=== PATIENT | female | born 1990 | race Caucasian/White ===

== ENCOUNTER 2019-03-31 16:26 | Emergency (ER) | payer MEDICAID ==
[2019-03-31 16:35] VITALS: BP 107/74
[2019-03-31] MEDS ORDERED: Sodium Chloride 0.9% 1,000 ML IV ONE (17:22)
[2019-03-31] MEDS ORDERED: HYDROmorphone 0.5 MG/0.5 ML Syringe IVPUSH ONE (17:23)
[2019-03-31] MEDS ORDERED: Sodium Chloride 0.9% 10 ML Syringe FLUSH PRN (17:24)
[2019-03-31] MEDS ORDERED: Ondansetron 4 MG/2 ML SDV IVPUSH ONE (17:24)
--- NOTE | 2019-03-31 18:39 | EDM.PDOC ---
ED HPI GENERAL MEDICAL PROBLEM - General Chief Complaint: Abdominal Pain Stated Complaint: ABD PAIN Time Seen by Provider: 03/31/19 17:05 Source of Information: Reports: Patient History Limitations: Reports: No Limitations - History of Present Illness INITIAL COMMENTS - FREE TEXT/NARRATIVE: 28-year-old female presents for evaluation and treatment of abdominal pain. Patient reports that the abdominal pain started last night. She describes as a sharp stabbing sensation worse with movement and breathing. It is in her epigastric area with radiation into her back. She states that she tried Pepto- Bismol but continues to have pain. She denies any chest pain, back pain, shortness of breath, fevers, chills, nausea, vomiting, lightheadedness, dizziness or any urinary symptoms including no dysuria hematuria. Reports her last bowel movement was today. She is not appreciated any blood urinary stool. Reports last menstrual period ended about 3 days ago. Patient denies a previous surgeries to her abdomen. Upper Abdomen Pain Score (Numeric/FACES): 10 - Related Data Allergies Allergy/AdvReac Type Severity Reaction Status Date / Time caffeine AdvReac Vomiting Verified 03/31/19 16:34 tramadol AdvReac Vomiting Verified 03/31/19 16:34 Home Meds: Home Meds Budesonide/Formoterol [Symbicort 160-4.5 MCG] 1 inh INH DAILY 03/31/19 [History] Cephalexin [Keflex] 500 mg PO BID #10 capsule 03/31/19 [Rx] FLUoxetine [PROzac] 20 mg PO DAILY 03/31/19 [History] Naproxen 500 mg PO BID PRN #20 tablet 03/31/19 [Rx] Prazosin [Minpress] 5 mg PO DAILY 03/31/19 [History] lamoTRIgine [Lamotrigine] 200 mg PO BID 03/31/19 [History] Past Medical History Neurological History: Reports: Seizure Psychiatric History: Reports: Bipolar Social & Family History - Tobacco Use Smoking Status *Q: Current Every Day Smoker Years of Tobacco use: 10 Packs/Tins Daily: 0.5 - Caffeine Use Caffeine Use: Reports: None - Recreational Drug Use Recreational Drug Use: No ED ROS GENERAL - Review of Systems Review Of Systems: See Below Constitutional: Denies: Fever, Chills Respiratory: Denies: Shortness of Breath Cardiovascular: Denies: Chest Pain, Lightheadedness GI/Abdominal: Reports: Abdominal Pain (epigastric). Denies: Diarrhea, Nausea, Vomiting : Reports: No Symptoms. Denies: Dysuria, Hematuria Musculoskeletal: Denies: Back Pain Neurological: Denies: Dizziness ED EXAM, GI/ABD - Physical Exam Exam: See Below Exam Limited By: No Limitations General Appearance: Alert, WD/WN, No Apparent Distress Throat/Mouth: Normal Inspection, Normal Voice, No Airway Compromise Respiratory/Chest: No Respiratory Distress, Lungs Clear, Normal Breath Sounds Cardiovascular: Normal Peripheral Pulses, Regular Rate, Rhythm, No Murmur GI/Abdominal Exam: Normal Bowel Sounds, Soft, No Distention, Tender (epigastric) . No: Guarding, Rigid, Rebound Neurological: Alert, Oriented, Normal Cognition Psychiatric: Normal Affect, Normal Mood Skin Exam: Warm, Dry, Normal Color Course - Vital Signs Last Recorded V/S: Last Vital Signs Temp 98.1 F 03/31/19 16:32 Pulse 62 03/31/19 16:32 Resp 18 03/31/19 16:32 BP 107/74 03/31/19 16:32 Pulse Ox 100 03/31/19 16:32 - Orders/Labs/Meds Labs: Laboratory Tests 03/31/19 03/31/19 03/31/19 Range/Units 17:35 17:41 17:41 WBC 4.44 (3.98-10.04) K/mm3 RBC 3.80 L (3.98-5.22) M/mm3 Hgb 11.5 (11.2-15.7) gm/L Hct 34.6 (34.1-44.9) % MCV 91.1 (79.4-94.8) fl MCH 30.3 (25.6-32.2) pg MCHC 33.2 (32.2-35.5) g/dl RDW Std Deviation 44.9 (36.4-46.3) fL Plt Count 257 (182-369) K/mm3 MPV 9.1 L (9.4-12.3) fl Neutrophils % (Manual) 65 H (40-60) % Band Neutrophils % 0 (0-10) % Lymphocytes % (Manual) 29 (20-40) % Atypical Lymphs % 0 % Monocytes % (Manual) 3 (2-10) % Eosinophils % (Manual) 3 (0.7-5.8) % Basophils % (Manual) 0 L (0.1-1.2) Platelet Estimate Adequate RBC Morph Comment Normal Sodium (136-145) mEq/L Potassium (3.5-5.1) mEq/L Chloride (98-107) mEq/L Carbon Dioxide (21-32) mEq/L Anion Gap (5-15) BUN (7-18) mg/dL Creatinine (0.55-1.02) mg/dL Est Cr Clr Drug Dosing mL/min Estimated GFR (MDRD) (>60) mL/min BUN/Creatinine Ratio (14-18) Glucose (74-106) mg/dL Calcium (8.5-10.1) mg/dL Total Bilirubin (0.2-1.0) mg/dL AST (15-37) U/L ALT (14-59) U/L Alkaline Phosphatase (46-116) U/L C-Reactive Protein (<1.0) mg/dL Total Protein (6.4-8.2) g/dl Albumin (3.4-5.0) g/dl Globulin gm/dL Albumin/Globulin Ratio (1-2) Lipase (73-393) U/L Urine Color Yellow (Yellow) Urine Appearance Clear (Clear) Urine pH 8.0 (5.0-8.0) Ur Specific [place] 1.015 (1.005-1.030) Urine Protein Negative (Negative) Urine Glucose (UA) Negative (Negative) Urine Ketones Negative (Negative) Urine Occult Blood Negative (Negative) Urine Nitrite Positive H (Negative) Urine Bilirubin Negative (Negative) Urine Urobilinogen 0.2 (0.2-1.0) Ur Leukocyte Esterase Negative (Negative) Urine RBC 0-5 (0-5) /hpf Urine WBC 0-5 (0-5) /hpf Ur Epithelial Cells 0-5 (0-5) /hpf Urine Bacteria Many H (FEW) /hpf Urine Mucus Few (FEW) /hpf Urine HCG, Qual Negative (NEGATIVE) 03/31/19 Range/Units 17:41 WBC (3.98-10.04) K/mm3 RBC (3.98-5.22) M/mm3 Hgb (11.2-15.7) gm/L Hct (34.1-44.9) % MCV (79.4-94.8) fl MCH (25.6-32.2) pg MCHC (32.2-35.5) g/dl RDW Std Deviation (36.4-46.3) fL Plt Count (182-369) K/mm3 MPV (9.4-12.3) fl Neutrophils % (Manual) (40-60) % Band Neutrophils % (0-10) % Lymphocytes % (Manual) (20-40) % Atypical Lymphs % % Monocytes % (Manual) (2-10) % Eosinophils % (Manual) (0.7-5.8) % Basophils % (Manual) (0.1-1.2) Platelet Estimate RBC Morph Comment Sodium 142 (136-145) mEq/L Potassium 3.0 L (3.5-5.1) mEq/L Chloride 106 (98-107) mEq/L Carbon Dioxide 25 (21-32) mEq/L Anion Gap 14.0 (5-15) BUN 11 (7-18) mg/dL Creatinine 0.9 (0.55-1.02) mg/dL Est Cr Clr Drug Dosing 69.97 mL/min Estimated GFR (MDRD) > 60 (>60) mL/min BUN/Creatinine Ratio 12.2 L (14-18) Glucose 81 (74-106) mg/dL Calcium 8.3 L (8.5-10.1) mg/dL Total Bilirubin 0.3 (0.2-1.0) mg/dL AST 16 (15-37) U/L ALT 20 (14-59) U/L Alkaline Phosphatase 63 (46-116) U/L C-Reactive Protein < 0.2 (<1.0) mg/dL Total Protein 6.8 (6.4-8.2) g/dl Albumin 3.7 (3.4-5.0) g/dl Globulin 3.1 gm/dL Albumin/Globulin Ratio 1.2 (1-2) Lipase 74 (73-393) U/L Urine Color (Yellow) Urine Appearance (Clear) Urine pH (5.0-8.0) Ur Specific [place] (1.005-1.030) Urine Protein (Negative) Urine Glucose (UA) (Negative) Urine Ketones (Negative) Urine Occult Blood (Negative) Urine Nitrite (Negative) Urine Bilirubin (Negative) Urine Urobilinogen (0.2-1.0) Ur Leukocyte Esterase (Negative) Urine RBC (0-5) /hpf Urine WBC (0-5) /hpf Ur Epithelial Cells (0-5) /hpf Urine Bacteria (FEW) /hpf Urine Mucus (FEW) /hpf Urine HCG, Qual (NEGATIVE) Meds: Medications Discontinued Medications Generic Name Dose Route Start Last Admin Trade Name Freq PRN Reason Stop Dose Admin Hydromorphone HCl 0.5 mg 03/31/19 17:23 03/31/19 17:49 Dilaudid IVPUSH 03/31/19 17:24 0.5 mg ONETIME ONE Administration Sodium Chloride 1,000 mls @ 999 mls/hr 03/31/19 17:22 03/31/19 17:50 Normal Saline IV 03/31/19 18:22 999 mls/hr ONETIME ONE Administration Ondansetron HCl 4 mg 03/31/19 17:24 03/31/19 17:48 Zofran IVPUSH 03/31/19 17:25 4 mg ONETIME ONE Administration Sodium Chloride 10 ml 03/31/19 17:24 03/31/19 17:49 Saline Flush FLUSH 10 ml ASDIRECTED PRN Administration Keep Vein Open - Radiology Interpretation Free Text/Narrative:: abdominal xray shows increased stool to the left colon and increased gas to the right. No acute process identified. - Re-Assessments/Exams Free Text/Narrative Re-Assessment/Exam: 03/31/19 19:39 xray and labs reviewed with the patient. No indication for CT at this time. Recommendations given for constipation. Will start on antibiotic for UTI. Patient requested something for pain. Will prescribe naproxen for pain relief. Discharge instructions as documented. Departure - Departure Time of Disposition: 19:40 Disposition: Home, Self-Care 01 Condition: Good Clinical Impression: Constipation, UTI (urinary tract infection) - Discharge Information *PRESCRIPTION DRUG MONITORING PROGRAM REVIEWED*: No *COPY OF PRESCRIPTION DRUG MONITORING REPORT IN PATIENT DILIP: No Prescriptions: Cephalexin [Keflex] 500 mg PO BID #10 capsule Naproxen 500 mg PO BID PRN #20 tablet PRN Reason: Pain Referrals: PCP,Not In Area [Primary Care Provider] - Charlotte Pugh PA-C [Physician Wire Harness Assembler] - Forms: ED Department Discharge Additional Instructions: you were given medication in the ER that can affect your ability to drive and operate machinery. Do not drive or operate machinery within 10 hours of taking prescription narcotic pain medication. Recommend magnesium citrate. This is available OTC. Drink half of the 300ml bottle, if you do not have a large bowel movement within 10 hours, drink the second half of the bottle. take the Keflex as prescribed. 1 tab twice a day for 5 days. Make sure you are drinking plenty of fluids. Follow-up with family medicine next week for recheck of your symptoms. Take the naproxen 1 tab twice daily as needed for pain. Please return to the ER should your symptoms change or worsen.
--- NOTE | 2019-04-01 06:47 | CR ---
Abdomen: Supine and upright views of the abdomen were obtained. Comparison: No previous study. Scoliosis is noted within the spine. Bowel gas pattern is normal. No abnormal calcifications or soft tissue abnormality is seen. No free air is seen. Impression: 1. Incidental findings. Nothing acute is seen. Diagnostic code #2
== END 2019-03-31 19:38 | disposition home or self-care (01) ==
LOC: JD.ED 16:26
DX: K59.00 Constipation, unspecified (principal); N39.0 Urinary tract infection, site not specified; F17.210 Nicotine dependence, cigarettes, uncomplicated; Z79.899 Other long term (current) drug therapy; Z88.6 Allergy status to analgesic agent; Z91.018 Allergy to other foods
CPT/HCPCS: 36415; 74019; 80053; 81001; 81025; 83690; 85007; 85027; 86140; 87086; 87088; 87186; 96361; 96374; 96375; 99284; J1170; J2405; J7040; 99283

== ENCOUNTER 2019-04-16 08:49 | Emergency (ER) | payer MEDICAID ==
[2019-04-16 08:57] VITALS: BP 121/84
--- NOTE | 2019-04-16 09:31 | EDM.PDOC ---
ED HPI GENERAL MEDICAL PROBLEM - General Chief Complaint: ENT Problem Stated Complaint: RT SIDE OF FACE SWOLLEN Time Seen by Provider: 04/16/19 09:27 Source of Information: Reports: Patient History Limitations: Reports: No Limitations - History of Present Illness INITIAL COMMENTS - FREE TEXT/NARRATIVE: 28-year-old female presents to the ED with severe pain in the right side of her face. No known trauma or injuries. She does not feel like she has a dental infection. She states she can barely open her mouth on the whole right side of her face hurts particularly up to her right ear. Pain came on apparently over the last 24-36 hours. No associated fever or chills. She states she's never had any problems like this before. No recent dental procedures for prolonged mouth opening. Onset: Gradual Onset Date: 04/15/19 (Right-sided face was moderately sore yesterday but severe this morning.) Duration: Day(s):, Getting Worse, Waxing/Waning Location: Reports: Face Quality: Reports: Ache (Right side of face anterior to her right ear down to the angle of her mandible.), Throbbing Severity: Severe Improves with: Reports: Rest (Not talking.) Worsens with: Reports: Other (Trying to eat or talk.) Context: Denies: Activity, Exercise, Lifting, Sick Contact, Trauma, Other Associated Symptoms: Denies: No Other Symptoms, Confusion, Chest Pain, Cough, cough w sputum, Diaphoresis, Fever/Chills, Headaches, Loss of Appetite, Malaise , Nausea/Vomiting, Rash, Seizure, Shortness of Breath, Syncope, Weakness Treatments PARTS FACILITATOR: Reports: Other (see below) (None.) Right Jaw Pain Score (Numeric/FACES): 9 - Related Data Allergies Allergy/AdvReac Type Severity Reaction Status Date / Time caffeine AdvReac Vomiting Verified 04/16/19 08:58 tramadol AdvReac Vomiting Verified 03/31/19 16:34 Home Meds: Home Meds Budesonide/Formoterol [Symbicort 160-4.5 MCG] 1 inh INH DAILY 03/31/19 [History] Prazosin [Minpress] 5 mg PO DAILY 03/31/19 [History] lamoTRIgine [Lamotrigine] 200 mg PO BID 03/31/19 [History] Diclofenac Sodium [Voltaren] 50 mg PO TID #24 tab.ec 04/16/19 [Rx] oxyCODONE HCl/Acetaminophen [Percocet 5-325 mg Tablet] 1 each PO Q6H PRN #10 tablet 04/16/19 [Rx] predniSONE [Deltasone] 20 mg PO BID #10 tablet 04/16/19 [Rx] Past Medical History 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 Denies: Fever, Chills, Weight Loss HEENT: Reports: Ear Pain (Right side). Denies: Dental Pain, Eye Discharge, Eye Pain, Glasses, Hearing Loss, Nosebleed, Nose Pain, Rhinitis, Sinus Problem, Throat Pain, Throat Swelling, Vertigo, Vision Change Respiratory: Reports: No Symptoms Cardiovascular: Reports: No Symptoms Endocrine: Reports: No Symptoms GI/Abdominal: Reports: No Symptoms : Reports: No Symptoms Musculoskeletal: Reports: Other Skin: Reports: No Symptoms (Right hemifacial pain especially anterior to the right ear) Neurological: Reports: No Symptoms Psychiatric: Reports: No Symptoms Hematologic/Lymphatic: Reports: No Symptoms ED EXAM, ENT - Physical Exam Exam: See Below Exam Limited By: Physical Impairment (Patient has severe trismus.) General Appearance: Alert, WD/WN, Moderate Distress, Other (She is only able to open her mouth approximately 3 cm in between her incisor teeth.) Ears: Normal TMs, Other (Severe pain right temporomandibular joint. There is mild master muscle spasm on the right side as well. And seemed to be apparent on the left side but milder. Suspect bruxism at night time.) Mouth/Throat: Normal Inspection, Normal Gums, Normal Lips, Normal Oropharynx, Normal Teeth, Other Head: Atraumatic (No signs of any dental infection oropharyngeal inflammation.) , Normocephalic Neck: Normal Inspection, Supple, Non-Tender. No: Lymphadenopathy (L), Lymphadenopathy (R) Respiratory/Chest: No Respiratory Distress, Lungs Clear, Normal Breath Sounds, No Accessory Muscle Use Cardiovascular: Normal Peripheral Pulses, Regular Rate, Rhythm, No Edema, No Gallop, No Murmur, No Rub Course - Vital Signs Last Recorded V/S: Last Vital Signs Temp 37.1 C 04/16/19 08:56 Pulse 89 04/16/19 08:56 Resp 15 04/16/19 08:56 BP 121/84 04/16/19 08:56 Pulse Ox 100 04/16/19 08:56 - Radiology Interpretation Free Text/Narrative:: 28-year-old female presents to the ED with diffuse right hemifacial pain. It's been getting worse over the last 2 days. Severe overnight. Emanation reveals pain is coming from the right temporomandibular joint with masseter muscle spasm. There appears to be milder pain on the left side of her face as well in the same distribution. Suspect she is experiencing bruxism at night time with clenching. Advised soft diet. Placed on prednisone 20 mg twice a day for 5 days and Voltaren 50 mg twice a day for 10 days to relieve pain and inflammation.Also placed on 10 tablets of Percocet 5/325 mg one tablet every 6 hours as needed for pain relief until the anti-inflammatories become effectual over the next 2 days. If symptoms persist she is going to need to see a dentist to have a bite block formed or I believe they do self bite blocks through the [facility] [employer] stores. Departure - Departure Time of Disposition: 09:27 Disposition: Home, Self-Care 01 Condition: Fair Clinical Impression: Temporomandibular joint arthralgia Qualifiers: Laterality: right Qualified Code(s): M26.621 - Arthralgia of right temporomandibular joint - Discharge Information *PRESCRIPTION DRUG MONITORING PROGRAM REVIEWED*: Not Applicable *COPY OF PRESCRIPTION DRUG MONITORING REPORT IN PATIENT DILIP: Not Applicable Prescriptions: Diclofenac Sodium [Voltaren] 50 mg PO TID #24 tab.ec oxyCODONE HCl/Acetaminophen [Percocet 5-325 mg Tablet] 1 each PO Q6H PRN #10 tablet PRN Reason: pain relief. predniSONE [Deltasone] 20 mg PO BID #10 tablet Instructions: Temporomandibular Joint Syndrome Referrals: PCP,None [Primary Care Provider] - Forms: ED Department Discharge Additional Instructions: Evaluation the emergency room this morning regards to right hemifacial pain and swelling that she will awoke with this morning. Examination reveals ears to be normal. Marked severe pain coming from the temporomandibular joint on the right side. No evidence of parotid gland inflammation and no dental infections identified. It appears that you have somehow stranger temporomandibular joint. Think of this like an ankle sprain with swelling inside the joint capsule. This makes it very difficult to open her mouth and of course to chew. Diet is to be soft diet for the next week to 10 days.no gum. Use anti-inflammatory Voltaren 50 mg 3 times daily for the next 8 days with food to reduce pain and inflammation. This takes a good day and a half to work. Use Deltasone 20 mg twice daily breakfast and supper and you can take the first one this morning when you get medication. This medication should also be taken with food. Use Percocet tablet 5/325 mg for pain relief one every 6 hours as needed with food to relieve acute pain until the anti-inflammatories are working well. Expect swelling and inflammation to improve over the next 7 days. Follow-up with personal care physician in 10 days if not markedly improved
== END 2019-04-16 09:35 | disposition home or self-care (01) ==
LOC: JD.ED 08:49
DX: M26.621 Arthralgia of right temporomandibular joint (principal); F17.210 Nicotine dependence, cigarettes, uncomplicated; Z88.5 Allergy status to narcotic agent; Z79.899 Other long term (current) drug therapy
CPT/HCPCS: 99282; 99283

== ENCOUNTER 2019-04-18 21:42 | Emergency (ER) | payer MEDICAID ==
[2019-04-18] MEDS ORDERED: Sodium Chloride 0.9% 10 ML Syringe FLUSH PRN (21:48)
[2019-04-18 21:58] VITALS: BP 113/71
--- NOTE | 2019-04-18 23:30 | EDM.PDOC ---
ED HPI GENERAL MEDICAL PROBLEM - General Chief Complaint: Neurological Problem Stated Complaint: [facility] Time Seen by Provider: 04/18/19 21:47 Source of Information: Reports: EMS History Limitations: Reports: Altered Mental Status - History of Present Illness INITIAL COMMENTS - FREE TEXT/NARRATIVE: The patient arrives by [facility] for a seizure. She [facility] a [facility]. She has a know history of seizures and she is on lamotrigine for it. She was standing and drinking an energy drink and she fell over and started go have a seizure. She was caught and helped to the floor. She did not hit her head or hurt her neck. Her blood sugar was low at 68. She was post ictal upon arrival but making more sense as I examined her. She did not miss any doses of her medications. She did not drink any alcohol and she is getting enough sleep. She has no fever, chills, cough, congestion, runny nose, chest pain, shortness of breath, abdominal pain, nausea or vomiting. The seizure was witnessed and it was a generalized tonic clinic seizure lasting just under 2 minutes. Onset: Sudden Duration: Minutes: Severity: Moderate Improves with: Reports: None Worsens with: Reports: None Associated Symptoms: Reports: No Other Symptoms Headache Pain Score (Numeric/FACES): 8 - Related Data Allergies Allergy/AdvReac Type Severity Reaction Status Date / Time coconut Allergy Difficulty Verified 04/18/19 21:59 Swallowing Penicillins Allergy Hives Verified 04/18/19 21:58 caffeine AdvReac Vomiting Verified 04/18/19 21:58 tramadol AdvReac Vomiting Verified 04/18/19 21:58 kiwi Allergy Difficulty Uncoded 04/18/19 21:59 Swallowing Home Meds: Home Meds Budesonide/Formoterol [Symbicort 160-4.5 MCG] 1 inh INH DAILY 03/31/19 [History] Prazosin [Minpress] 5 mg PO DAILY 03/31/19 [History] lamoTRIgine [Lamotrigine] 200 mg PO BID 03/31/19 [History] Diclofenac Sodium [Voltaren] 50 mg PO TID #24 tab.ec 04/16/19 [Rx] oxyCODONE HCl/Acetaminophen [Percocet 5-325 mg Tablet] 1 each PO Q6H PRN #10 tablet 04/16/19 [Rx] predniSONE [Deltasone] 20 mg PO BID #10 tablet 04/16/19 [Rx] FLUoxetine HCl [Prozac] 20 mg PO DAILY 04/18/19 [History] Naproxen [Naprosyn] 500 mg PO BID PRN 04/18/19 [History] Past Medical History [employer] History: Reports: Neurological History: Reports: Seizure Psychiatric History: Reports: Bipolar, PTSD Social & Family History - Tobacco Use Smoking Status *Q: Current Every Day Smoker Years of Tobacco use: 10 Packs/Tins Daily: 1 - Caffeine Use Caffeine Use: Reports: None - Recreational Drug Use Recreational Drug Use: No - Living Situation & Occupation Living situation: Reports: Single Occupation: Unemployed ED ROS GENERAL - Review of Systems Review Of Systems: See Below Constitutional: Reports: No Symptoms HEENT: Reports: No Symptoms Respiratory: Reports: No Symptoms Cardiovascular: Reports: No Symptoms Endocrine: Reports: No Symptoms GI/Abdominal: Reports: No Symptoms : Reports: No Symptoms Musculoskeletal: Reports: No Symptoms Skin: Reports: No Symptoms - Physical Exam Exam: See Below Exam Limited By: No Limitations General Appearance: Alert, No Apparent Distress Ears: Normal External Exam Nose: Normal Inspection Head Exam: Atraumatic, Normocephalic Neck: Normal Inspection Respiratory/Chest: No Respiratory Distress, Lungs Clear, Normal Breath Sounds Cardiovascular: Regular Rate, Rhythm, No Edema, No Murmur GI/Abdominal: Soft, Non-Tender, No Organomegaly, No Mass Neuro Exam (Abbreviated): Alert, Oriented, No Motor/Sensory Deficits Course - Vital Signs Last Recorded V/S: Last Vital Signs Temp 97.5 F 04/18/19 21:54 Pulse 76 04/18/19 21:54 Resp 17 04/18/19 21:54 BP 113/71 04/18/19 21:54 Pulse Ox 100 04/18/19 21:54 - Orders/Labs/Meds Orders: Active Orders 24 hr Category Date Time Status Cardiac Monitoring [RC] . DIRECTED Care 04/18/19 21:48 Active Peripheral IV Care [RC] . DIRECTED Care 04/18/19 21:49 Active LAMOTRIGINE, SERUM [REF] Stat Lab 04/18/19 22:52 Ordered Sodium Chloride 0.9% [Saline Flush] Med 04/18/19 21:48 Active 10 ml FLUSH ASDIRECTED PRN Peripheral IV Insertion Adult [OM.PC] Stat Oth 04/18/19 21:48 Ordered Medication Orders Sodium Chloride (Saline Flush) 10 ml FLUSH ASDIRECTED PRN PRN Reason: Keep Vein Open Last Admin: 04/18/19 22:00 Dose: 10 ml Labs: Laboratory Tests 04/18/19 04/18/19 Range/Units 21:55 21:55 WBC 7.80 (3.98-10.04) K/mm3 RBC 4.73 (3.98-5.22) M/mm3 Hgb 14.2 D (11.2-15.7) gm/L Hct 42.9 (34.1-44.9) % MCV 90.7 (79.4-94.8) fl MCH 30.0 (25.6-32.2) pg MCHC 33.1 (32.2-35.5) g/dl RDW Std Deviation 44.2 (36.4-46.3) fL Plt Count 336 D (182-369) K/mm3 MPV 9.4 (9.4-12.3) fl Neut % (Auto) 62.6 (34.0-71.1) % Lymph % (Auto) 27.3 (19.3-51.7) % Fallon % (Auto) 7.1 (4.7-12.5) % Eos % (Auto) 2.3 (0.7-5.8) Baso % (Auto) 0.3 (0.1-1.2) % Neut # (Auto) 4.89 (1.56-6.13) K/mm3 Lymph # (Auto) 2.13 (1.18-3.74) K/mm3 Fallon # (Auto) 0.55 H (0.24-0.36) K/mm3 Eos # (Auto) 0.18 (0.04-0.36) K/mm3 Baso # (Auto) 0.02 (0.01-0.08) K/mm3 Sodium 139 (136-145) mEq/L Potassium 4.2 (3.5-5.1) mEq/L Chloride 101 (98-107) mEq/L Carbon Dioxide 21 (21-32) mEq/L Anion Gap 21.2 H (5-15) BUN 22 H (7-18) mg/dL Creatinine 1.1 H (0.55-1.02) mg/dL Est Cr Clr Drug Dosing TNP Estimated GFR (MDRD) 59 (>60) mL/min BUN/Creatinine Ratio 20.0 H (14-18) Glucose 66 L (74-106) mg/dL Calcium 9.6 (8.5-10.1) mg/dL Magnesium 2.0 (1.8-2.4) mg/dl Total Bilirubin 0.2 (0.2-1.0) mg/dL AST 20 (15-37) U/L ALT 27 (14-59) U/L Alkaline Phosphatase 71 (46-116) U/L Total Protein 8.4 H (6.4-8.2) g/dl Albumin 4.3 (3.4-5.0) g/dl Globulin 4.1 gm/dL Albumin/Globulin Ratio 1.1 (1-2) Meds: Medications Generic Name Dose Route Start Last Admin Trade Name Freq PRN Reason Stop Dose Admin Sodium Chloride 10 ml 04/18/19 21:48 04/18/19 22:00 Saline Flush FLUSH 10 ml ASDIRECTED PRN Administration Keep Vein Open - Re-Assessments/Exams Free Text/Narrative Re-Assessment/Exam: 04/18/19 23:32 I ordered an IV saline lock and labs. Her CBC looks good. Her anion gap is elevated at 21.2. Her creatinine is elevated slightly at 1.1. Her glucose is 66. I have give her some juice. I am not sure what caused the seizure. She is a little dehydrated. I will give her some ativan here and discharge her home. The low blood sugar could be from the seizure burning up the sugar. Departure - Departure Time of Disposition: 23:35 Disposition: Home, Self-Care 01 Condition: Good Clinical Impression: Seizure, Dehydration - Discharge Information *PRESCRIPTION DRUG MONITORING PROGRAM REVIEWED*: No *COPY OF PRESCRIPTION DRUG MONITORING REPORT IN PATIENT DILIP: No Referrals: PCP,None [Primary Care Provider] - Charlotte Pugh PA-C [Physician Certified Substance Abuse Counselor] - 1 Week Additional Instructions: Go home and rest and drink plenty of fluids. Take your medication as prescribed. Please return if you are worse. Follow up with your doctor or see Charlotte Pugh in our clinic. - My Orders Last 24 Hours: My Active Orders 04/18/19 21:48 Cardiac Monitoring [RC] . DIRECTED Sodium Chloride 0.9% [Saline Flush] 10 ml FLUSH ASDIRECTED PRN Peripheral IV Insertion Adult [OM.PC] Stat 04/18/19 21:49 Peripheral IV Care [RC] . DIRECTED 04/18/19 22:52 LAMOTRIGINE, SERUM [REF] Stat - Assessment/Plan Last 24 Hours: My Active Orders 04/18/19 21:48 Cardiac Monitoring [RC] . DIRECTED Sodium Chloride 0.9% [Saline Flush] 10 ml FLUSH ASDIRECTED PRN Peripheral IV Insertion Adult [OM.PC] Stat 04/18/19 21:49 Peripheral IV Care [RC] . DIRECTED 04/18/19 22:52 LAMOTRIGINE, SERUM [REF] Stat
[2019-04-18] MEDS ORDERED: LORazepam 0.5 MG Tab PO ONE (23:34)
== END 2019-04-18 23:55 | disposition home or self-care (01) ==
LOC: JD.ED 21:42
DX: R56.9 Unspecified convulsions (principal); E86.0 Dehydration; F17.210 Nicotine dependence, cigarettes, uncomplicated; Z88.0 Allergy status to penicillin; Z91.018 Allergy to other foods; Z88.5 Allergy status to narcotic agent; Z79.899 Other long term (current) drug therapy
CPT/HCPCS: 36415; 80053; 80175; 83735; 85025; 99284; A9270; 99285

== ENCOUNTER 2019-08-27 17:59 | Emergency (ER) | payer MEDICAID ==
[2019-08-27] MEDS ORDERED: Ondansetron 4 MG Tab.DIS PO ONE (18:17)
[2019-08-27 18:24] VITALS: BP 103/77; PULSE 68
[2019-08-27] MEDS ORDERED: Ketorolac 30 MG/ML SDV IM ONE (18:51)
--- NOTE | 2019-08-27 18:58 | EDM.PDOC ---
ED HPI GENERAL MEDICAL PROBLEM - General Chief Complaint: Gastrointestinal Problem Stated Complaint: VOMITING Time Seen by Provider: 08/27/19 18:10 Source of Information: Reports: Patient, RN Notes Reviewed, Other (significant other in room) History Limitations: Reports: No Limitations - History of Present Illness INITIAL COMMENTS - FREE TEXT/NARRATIVE: Patient is a 28-year-old female who presents to the ED for evaluation of multiple issues. She notes that she has a history of seizures, these appear to be combined. Has been vomiting, and has a headache. Patient notes she's been vomiting on and off for the past few days, and states she cannot really remember how often she's been vomiting. The patient states that she's had seizures in the past, and roughly 4 months ago she talked with her psychiatrist provider and neurologist, and apparently they stopped Depakote and switched her to lamotrigine, stopped fluoxetine, stopped Lunesta, stopped prazosin 5 mg. The significant other in the room, demonstrates she's been having issues like nausea, vomiting, headaches, since the stop of this medication. He states he was not made aware that she stopped taking these medications. Tonight she is complaining of nausea with vomiting, and a headache. It's that the headache is in the front of her head, radiates to the back of her head. She notes she has been able to eat and drink okay today. Patient does not have a primary care provider in [place]. Her neurologist and psychiatrist are out of [facility]. Treatments [employer]: Reports: Other (see below) Other Treatments [employer]: thera flu tea Headache Pain Score (Numeric/FACES): 10 Lower Pelvic Pain Score (Numeric/FACES): 5 - Related Data Allergies Allergy/AdvReac Type Severity Reaction Status Date / Time coconut Allergy Difficulty Verified 04/18/19 21:59 Swallowing Penicillins Allergy Hives Verified 04/18/19 21:58 caffeine AdvReac Vomiting Verified 04/18/19 21:58 tramadol AdvReac Vomiting Verified 04/18/19 21:58 kiwi Allergy Difficulty Uncoded 04/18/19 21:59 Swallowing Home Meds: Home Meds Budesonide/Formoterol [Symbicort 160-4.5 MCG] 1 inh INH DAILY PRN 03/31/19 [ History] lamoTRIgine [Lamotrigine] 200 mg PO BID 03/31/19 [History] Meclizine [Antivert] 25 mg PO Q6H PRN #12 tab 08/27/19 [Rx] Ondansetron [Zofran ODT] 4 mg PO Q8H PRN #28 tab.dis 08/27/19 [Rx] Past Medical History [employer] History: Reports: Neurological History: Reports: Seizure Psychiatric History: Reports: Anxiety, Bipolar, Depression, PTSD Social & Family History - Tobacco Use Smoking Status *Q: Current Every Day Smoker Years of Tobacco use: 2 Packs/Tins Daily: 0.3 - Caffeine Use Caffeine Use: Reports: Soda - Recreational Drug Use Recreational Drug Use: No - Living Situation & Occupation Living situation: Reports: Single Occupation: Unemployed ED ROS GENERAL - Review of Systems Review Of Systems: See Below Constitutional: Denies: Fever, Chills HEENT: Denies: Vision Change Respiratory: Denies: Shortness of Breath Cardiovascular: Denies: Chest Pain Endocrine: Reports: No Symptoms GI/Abdominal: Reports: Nausea, Vomiting. Denies: Abdominal Pain, Constipation, Diarrhea Neurological: Reports: Dizziness, Headache. Denies: Confusion, Seizure, Syncope , Difficulty Walking Psychiatric: Reports: No Symptoms Hematologic/Lymphatic: Reports: No Symptoms Immunologic: Reports: No Symptoms ED EXAM, GENERAL - Physical Exam Exam: See Below Exam Limited By: No Limitations General Appearance: Alert, WD/WN, No Apparent Distress Eye Exam: Bilateral Eye: EOMI, Normal Inspection, PERRL Throat/Mouth: Normal Inspection, Normal Lips, Normal Teeth, Normal Gums, Normal Oropharynx, Normal Voice, No Airway Compromise Head: Atraumatic, Normocephalic Neck: Normal Inspection Respiratory/Chest: No Respiratory Distress, Lungs Clear, Normal Breath Sounds, No Accessory Muscle Use, Chest Non-Tender Cardiovascular: Normal Peripheral Pulses, Regular Rate, Rhythm, No Murmur Peripheral Pulses: 3+: Radial (L), Radial (R) GI/Abdominal: Normal Bowel Sounds, Soft, Non-Tender, No Distention, No Mass Extremities: Normal Inspection, Normal Capillary Refill Neurological: Alert, Oriented, Normal Cognition, No Motor/Sensory Deficits Psychiatric: Normal Affect, Normal Mood Skin Exam: Warm, Dry, Intact, Normal Color, No Rash Course - Vital Signs Last Recorded V/S: Last Vital Signs Temp 99.9 F 08/27/19 18:22 Pulse 68 08/27/19 18:22 Resp 20 08/27/19 18:22 BP 103/77 08/27/19 18:22 Pulse Ox 95 08/27/19 18:22 Orthostatic Blood Pressure [ 116/83 Standing] Orthostatic Blood Pressure [ 108/76 Sitting] Orthostatic Blood Pressure [ 115/77 Supine] - Orders/Labs/Meds Orders: Active Orders 24 hr Category Date Time Status Orthostatic Vital Signs [RC] ASDIRECTED Care 08/27/19 19:00 Ordered Meds: Medications Discontinued Medications Generic Name Dose Route Start Last Admin Trade Name Freq PRN Reason Stop Dose Admin Ketorolac Tromethamine 30 mg 08/27/19 18:51 08/27/19 18:56 Toradol IM 08/27/19 18:52 30 mg ONETIME ONE Administration Meclizine HCl 25 mg 08/27/19 19:31 08/27/19 19:35 Antivert PO 08/27/19 19:32 25 mg ONETIME ONE Administration Ondansetron HCl 4 mg 08/27/19 18:17 08/27/19 18:57 Zofran Odt PO 08/27/19 18:18 4 mg ONETIME ONE Administration - Re-Assessments/Exams Free Text/Narrative Re-Assessment/Exam: 08/27/19 18:58 Patient presents to the ED for evaluation of multiple complaints. At this time the requesting something for her nausea, and headache, as she was not able to keep any pills down at home. Did order 4 mg ODT Zofran, and 30 mg IM Toradol for initial management. I talked with the patient and her significant other extensively, and they state they are going to call the psychiatrist and neurologist on Thursday, and get this medication situation straightened out, as they both believe this is was causing most of her symptoms for the time that they have been causing them. They were requesting a possible outpatient prescription for Zofran, and something for her headache. I think that this would be amenable, if the Toradol works well, I will still recommend that she take ibuprofen on an outpatient basis versus a prescription of Toradol. 08/27/19 19:29 Patient was given the Toradol, and states she has not felt much relief from this. She states she still has a headache and is feeling dizzy. From her medication history and appears that she had been on meclizine at some point, might try this for her dizziness, as orthostatic vital signs did not show any signs of hypotension. Departure - Departure Time of Disposition: 20:09 Disposition: Home, Self-Care 01 Condition: Fair Clinical Impression: Vertigo, Nausea - Discharge Information *PRESCRIPTION DRUG MONITORING PROGRAM REVIEWED*: No *COPY OF PRESCRIPTION DRUG MONITORING REPORT IN PATIENT DILIP: No Prescriptions: Meclizine [Antivert] 25 mg PO Q6H PRN #12 tab PRN Reason: dizziness Ondansetron [Zofran ODT] 4 mg PO Q8H PRN #28 tab.dis PRN Reason: Nausea Instructions: Vertigo, [id number], Nausea and Vomiting, Adult, [id number], How to Perform the Ramez Maneuver Forms: ED Department Discharge Additional Instructions: You were evaluated in the ED regarding your nausea and dizziness and headache. You were given a combination of medications in the ER, that seemed to help your symptoms quite a bit. You were given a prescription for Zofran, and antinausea medication, please take one tab dissolvable by mouth every 8 hours as needed for nausea. You are given a prescription for meclizine, this is for vertigo, please take one tablet every 6 hours as needed for vertigo-like symptoms or dizziness. These [facility] [place] [facility]. Recommend that you talk with your neurologist and/or psychologist on Thursday, regarding your previous medications, to see if if some of these might not be causing some of your symptoms or issues. Please return to the ED if your symptoms should change or worsen. - My Orders Last 24 Hours: My Active Orders 08/27/19 19:00 Orthostatic Vital Signs [RC] ASDIRECTED - Assessment/Plan Last 24 Hours: My Active Orders 08/27/19 19:00 Orthostatic Vital Signs [RC] ASDIRECTED
== END 2019-08-27 20:15 | disposition home or self-care (01) ==
LOC: JD.ED 17:59 → SUPCPDRO 17:59 → JD.ED 20:15
DX: R42 Dizziness and giddiness (principal); R11.2 Nausea with vomiting, unspecified; F17.210 Nicotine dependence, cigarettes, uncomplicated; G40.909 Epilepsy, unspecified, not intractable, without status epilepticus; Z91.018 Allergy to other foods; Z88.0 Allergy status to penicillin; Z88.5 Allergy status to narcotic agent; Z79.899 Other long term (current) drug therapy
CPT/HCPCS: 96372; 99283; A9270; J1885

== ENCOUNTER 2020-01-07 22:44 | Emergency (ER) | payer MEDICAID ==
[2020-01-07 22:52] VITALS: BP 113/79; PULSE 98
--- NOTE | 2020-01-07 23:01 | EDM.PDOC ---
ED HPI GENERAL MEDICAL PROBLEM - General Chief Complaint: Neurological Problem Stated Complaint: [facility] Time Seen by Provider: 01/07/20 22:51 Source of Information: Reports: Patient, EMS History Limitations: Reports: No Limitations - History of Present Illness INITIAL COMMENTS - FREE TEXT/NARRATIVE: This is a 29-year-old female. Apparently she was at a local gas station and had a full-blown clonic tonic seizure. She says she has a history of seizures in the past and she takes Lamictal and she has not missed a dose. She denies any recent stress. She did have a headache this evening because she has not had caffeine in 2 days. By the time she arrived to the ER she his slightly postictal but she is awake enough to be able answer questions appropriately. She does know she is in the ER. She does complain of a headache but this is common for her she says after having a seizure. She denies any recent illnesses no colds no coughs no fever no chills. Headache Pain Score (Numeric/FACES): 7 - Related Data Allergies Allergy/AdvReac Type Severity Reaction Status Date / Time coconut Allergy Difficulty Verified 01/07/20 22:47 Swallowing Penicillins Allergy Hives Verified 01/07/20 22:47 caffeine AdvReac Vomiting Verified 01/07/20 22:47 tramadol AdvReac Vomiting Verified 01/07/20 22:47 kiwi Allergy Difficulty Uncoded 01/07/20 22:47 Swallowing Home Meds: Home Meds Budesonide/Formoterol [Symbicort 160-4.5 MCG] 1 inh INH DAILY PRN 03/31/19 [ History] lamoTRIgine [Lamotrigine] 200 mg PO BID 03/31/19 [History] Meclizine [Antivert] 25 mg PO Q6H PRN #12 tab 08/27/19 [Rx] Ondansetron [Zofran ODT] 4 mg PO Q8H PRN #28 tab.dis 08/27/19 [Rx] Past Medical History [employer] History: Reports: Neurological History: Reports: Seizure Psychiatric History: Reports: Anxiety, Bipolar, Depression, PTSD Social & Family History - Caffeine Use Caffeine Use: Reports: Soda - Recreational Drug Use Recreational Drug Use: No - Living Situation & Occupation Living situation: Reports: Single Occupation: Unemployed ED ROS GENERAL - Review of Systems Review Of Systems: See Below Constitutional: Denies: Fever, Chills HEENT: Reports: No Symptoms Respiratory: Denies: Shortness of Breath, Wheezing, Cough Cardiovascular: Denies: Chest Pain Endocrine: Reports: No Symptoms GI/Abdominal: Reports: No Symptoms : Reports: No Symptoms Musculoskeletal: Reports: No Symptoms Skin: Reports: No Symptoms Neurological: Reports: Headache, Other (She was postictal at the scene but is coherent now) Psychiatric: Reports: No Symptoms Hematologic/Lymphatic: Reports: No Symptoms - Physical Exam Exam: See Below Exam Limited By: No Limitations General Appearance: Alert, WD/WN, Mild Distress, Other (Complaining of headache ) Eye Exam: Bilateral Eye: Normal Inspection Ears: Normal External Exam Nose: Normal Inspection Throat/Mouth: Normal Inspection, Normal Lips, Normal Voice, No Airway Compromise , Other (She does have chapped lips ) Head Exam: Atraumatic, Normocephalic Neck: Supple, Non-Tender Respiratory/Chest: No Respiratory Distress, Lungs Clear, Normal Breath Sounds Cardiovascular: Regular Rate, Rhythm, No Murmur GI/Abdominal: Soft, Non-Tender Neuro Exam (Abbreviated): Alert, Oriented, Normal Cognition, No Motor/Sensory Deficits Back Exam: Full Range of Motion Extremities: Normal Inspection, Normal Range of Motion Psychiatric: Anxious Skin Exam: Warm, Dry Course - Vital Signs Last Recorded V/S: Last Vital Signs Temp 98.9 F 01/07/20 22:47 Pulse 98 01/07/20 22:47 Resp 18 01/07/20 22:47 BP 113/79 01/07/20 22:47 Pulse Ox 95 01/07/20 22:47 - Orders/Labs/Meds Labs: Laboratory Tests 01/07/20 01/07/20 01/07/20 Range/Units 22:53 22:53 23:06 WBC 5.87 (3.98-10.04) K/mm3 RBC 4.82 (3.98-5.22) M/mm3 Hgb 14.1 (11.2-15.7) gm/dl Hct 42.6 (34.1-44.9) % MCV 88.4 (79.4-94.8) fl MCH 29.3 (25.6-32.2) pg MCHC 33.1 (32.2-35.5) g/dl RDW Std Deviation 42.4 (36.4-46.3) fL Plt Count 354 (182-369) K/mm3 MPV 9.9 (9.4-12.3) fl Neut % (Auto) 54.9 (34.0-71.1) % Lymph % (Auto) 37.5 (19.3-51.7) % [place] % (Auto) 5.3 (4.7-12.5) % Eos % (Auto) 1.9 (0.7-5.8) Baso % (Auto) 0.2 (0.1-1.2) % Neut # (Auto) 3.23 (1.56-6.13) K/mm3 Lymph # (Auto) 2.20 (1.18-3.74) K/mm3 [place] # (Auto) 0.31 (0.24-0.36) K/mm3 Eos # (Auto) 0.11 (0.04-0.36) K/mm3 Baso # (Auto) 0.01 (0.01-0.08) K/mm3 Sodium 139 (136-145) mEq/L Potassium 3.8 (3.5-5.1) mEq/L Chloride 104 (98-107) mEq/L Carbon Dioxide 21 (21-32) mEq/L Anion Gap 17.8 H (5-15) BUN 18 (7-18) mg/dL Creatinine 1.2 H (0.55-1.02) mg/dL Est Cr Clr Drug Dosing 51.02 mL/min Estimated GFR (MDRD) 53 (>60) mL/min BUN/Creatinine Ratio 15.0 (14-18) Glucose 90 (74-106) mg/dL Calcium 9.4 (8.5-10.1) mg/dL Total Bilirubin 0.2 (0.2-1.0) mg/dL AST 15 (15-37) U/L ALT 27 (14-59) U/L Alkaline Phosphatase 65 (46-116) U/L Total Protein 8.5 H (6.4-8.2) g/dl Albumin 4.3 (3.4-5.0) g/dl Globulin 4.2 gm/dL Albumin/Globulin Ratio 1.0 (1-2) HCG, Qual Negative (NEGATIVE) - Re-Assessments/Exams Free Text/Narrative Re-Assessment/Exam: 01/08/20 00:11 Patient is alert and oriented now. She does complain of a headache but she is conversing readily with her ex . The patient states she normally has a headache after her seizures and this headache is no different than the ones in the past. She does not want to get a CAT scan of her head. I have encouraged her to keep her appointment with her neurologist on Thursday and have him recheck and if she has another seizure she is to return to the ER. The patient and her ex- are good with this. Departure - Departure Time of Disposition: 00:11 Disposition: Home, Self-Care 01 Condition: Fair Clinical Impression: Grand mal seizure, Seizure disorder - Discharge Information *PRESCRIPTION DRUG MONITORING PROGRAM REVIEWED*: Not Applicable *COPY OF PRESCRIPTION DRUG MONITORING REPORT IN PATIENT DILIP: Not Applicable Instructions: Epilepsy, [id number] Forms: ED Department Discharge Additional Instructions: Follow-up with your neurologist on Thursday as you have scheduled, continue with your medications, if you have an additional seizure return to the ER, for the next 24 hours gentle activity with lots of sleep and rest Sepsis Event Note - Evaluation Sepsis Screening Result: No Definite Risk - Focused Exam Vital Signs: Vital Signs Temp Pulse Resp BP Pulse Ox 01/07/20 22:47 98.9 F 98 18 113/79 95 Date Exam was Performed: 01/08/20 Time Exam was Performed: 00:11
== END 2020-01-08 00:37 | disposition home or self-care (01) ==
LOC: JD.ED 22:44
DX: G40.409 Other generalized epilepsy and epileptic syndromes, not intractable, without status epilepticus (principal); Z91.018 Allergy to other foods; Z88.0 Allergy status to penicillin; Z88.5 Allergy status to narcotic agent; Z79.899 Other long term (current) drug therapy
CPT/HCPCS: 36415; 80053; 84703; 85025; 99283; 99284

== ENCOUNTER 2020-05-12 11:23 | Emergency (ER) | payer MEDICAID ==
[2020-05-12] MEDS ORDERED: predniSONE 20 MG Tab PO ONE (11:47)
[2020-05-12] MEDS ORDERED: diphenhydrAMINE 50 MG Cap PO ONE (11:47)
--- NOTE | 2020-05-12 11:58 | EDM.PDOC ---
ED HPI GENERAL MEDICAL PROBLEM - General Chief Complaint: Allergic Reaction Stated Complaint: ALLERGIC RX TO COCONUTS Time Seen by Provider: 05/12/20 11:34 Source of Information: Reports: Patient, RN Notes Reviewed - History of Present Illness INITIAL COMMENTS - FREE TEXT/NARRATIVE: 29 yr old female with sx of allergic rx to coconut. Hx of that. Did an epi pen at home an hr ago, throat still feels swollen but better than it was. Mildly short of breath at time of exam. No rash, hives or itchiness. - Related Data Allergies Allergy/AdvReac Type Severity Reaction Status Date / Time coconut Allergy Severe Difficulty Verified 05/12/20 11:35 Swallowing Penicillins Allergy Severe Hives Verified 05/12/20 11:35 caffeine AdvReac Severe Vomiting Verified 05/12/20 11:35 tramadol AdvReac Severe Vomiting Verified 05/12/20 11:35 kiwi Allergy Severe Difficulty Uncoded 05/12/20 11:35 Swallowing Home Meds: Home Meds Budesonide/Formoterol [Symbicort 160-4.5 MCG] 1 inh INH DAILY PRN 03/31/19 [History] lamoTRIgine [Lamotrigine] 250 mg PO BID 03/31/19 [History] FLUoxetine [PROzac] 10 mg PO BEDTIME 05/12/20 [History] Past Medical History 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 Denies: Wheezing Cardiovascular: Denies: Chest Pain GI/Abdominal: Denies: Abdominal Pain, Vomiting Musculoskeletal: Reports: No Symptoms Skin: Denies: Rash Neurological: Reports: No Symptoms ED EXAM GENERAL NO PERIP PULSE - Physical Exam Exam: See Below General Appearance: Alert, No Apparent Distress Eye Exam: Bilateral Eye: PERRL Throat/Mouth: Normal Inspection, Normal Oropharynx, No Airway Compromise Head: No: Facial Swelling Neck: Supple Respiratory/Chest: No Respiratory Distress, Lungs Clear, Normal Breath Sounds. No: Rhonchi, Wheezing Cardiovascular: Regular Rate, Rhythm GI/Abdominal: Soft, Non-Tender Extremities: Normal Inspection, Normal Range of Motion Neurological: Alert, No Motor/Sensory Deficits Skin Exam: Warm, Dry, Normal Color Course - Vital Signs Last Recorded V/S: Last Vital Signs Temp 97.9 F 05/12/20 11:32 Pulse 85 05/12/20 11:32 Resp 16 05/12/20 11:32 BP 121/88 05/12/20 11:32 Pulse Ox 97 05/12/20 11:32 - Orders/Labs/Meds Meds: Medications Discontinued Medications Generic Name Dose Route Start Last Admin Trade Name Freq PRN Reason Stop Dose Admin Diphenhydramine HCl 50 mg 05/12/20 11:47 05/12/20 11:53 Benadryl PO 05/12/20 11:48 50 mg ONETIME ONE Administration Prednisone 40 mg 05/12/20 11:47 05/12/20 11:53 Prednisone PO 05/12/20 11:48 40 mg ONETIME ONE Administration - Re-Assessments/Exams Free Text/Narrative Re-Assessment/Exam: 05/12/20 11:59 throat looks good, sats 96 to 100, have given benadryl and prednisone oral. 05/12/20 12:45. Feeling better, sats are still good, discharge instr. as documented. Departure - Departure Time of Disposition: 12:25 Disposition: Home, Self-Care 01 Condition: Fair Clinical Impression: Allergic reaction Qualifiers: Encounter type: initial encounter Qualified Code(s): T78.40XA - Allergy, unspecified, initial encounter - Discharge Information Referrals: PCP,None [Primary Care Provider] - Forms: ED Department Discharge Additional Instructions: rest, you have been given benadryl 50 mg oral and prednisone 40 mg oral. You may continue benadryl q 6 to 8 hr if needed for further swelling or difficulty breathing. Follow up clinic as needed. Return to ED as needed if symptoms wor sening in any way. Sepsis Event Note (ED) - Evaluation Sepsis Screening Result: No Definite Risk - Focused Exam Vital Signs: Vital Signs Temp Pulse Resp BP Pulse Ox 05/12/20 11:32 97.9 F 85 16 121/88 97
[2020-05-12 12:59] VITALS: BP 111/83; PULSE 80
== END 2020-05-12 12:59 | disposition home or self-care (01) ==
LOC: JD.ED 11:23
DX: T78.40XA Allergy, unspecified, initial encounter (principal); F41.9 Anxiety disorder, unspecified; F31.9 Bipolar disorder, unspecified; R56.9 Unspecified convulsions; Z88.0 Allergy status to penicillin; Z88.5 Allergy status to narcotic agent; Z91.018 Allergy to other foods; Z79.899 Other long term (current) drug therapy
CPT/HCPCS: 99283; A9270; J7512

== ENCOUNTER 2020-06-25 13:08 | Emergency (ER) | payer MEDICAID ==
[2020-06-25] MEDS ORDERED: LORazepam 2 MG/ML SDV IVPUSH ONE (13:43)
[2020-06-25] MEDS ORDERED: Lidocaine 1% 10 ML MDV INJECT ONE (13:43)
--- NOTE | 2020-06-25 13:49 | EDM.PDOC ---
ED HPI GENERAL MEDICAL PROBLEM - General Chief Complaint: Neurological Problem Stated Complaint: [facility] Time Seen by Provider: 06/25/20 13:34 Source of Information: Reports: Patient, RN Notes Reviewed History Limitations: Reports: No Limitations - History of Present Illness INITIAL COMMENTS - FREE TEXT/NARRATIVE: Patient is a 29-year-old female who is brought in via [facility] for a seizure. Patient has a history of epilepsy, and states she was at [facility] today getting some deodorant when she had a seizure. She states that she recently had her seizure medication dose adjusted, but she cannot remember if he was increase or decrease. She states she was just on her way to the pharmacy to get the new prescription. States her last seizure was a couple months ago. She does feel slightly tired, she has an abrasion to the left side of her face, and near her left collarbone. There is a 1 cm laceration on the left lip, she is A&O x3. Patient not complaining of any neck pain, or any head pain. She states she was not feeling sick prior to this, no fever/chills, cough/shortness of breath, nausea/vomiting/diarrhea. She notes that her neurologist is a provider out of [place]. She states that she is on 3 different medications one to include Lamictal, she cannot remember the name of the others. Headache Pain Score (Numeric/FACES): 8 - Related Data Allergies Allergy/AdvReac Type Severity Reaction Status Date / Time coconut Allergy Severe Difficulty Verified 06/25/20 13:18 Swallowing Penicillins Allergy Severe Hives Verified 06/25/20 13:18 caffeine AdvReac Severe Vomiting Verified 06/25/20 13:18 tramadol AdvReac Severe Vomiting Verified 06/25/20 13:18 kiwi Allergy Severe Difficulty Uncoded 06/25/20 13:18 Swallowing Home Meds: Home Meds Budesonide/Formoterol [Symbicort 160-4.5 MCG] 1 inh INH DAILY PRN 03/31/19 [H istory] lamoTRIgine [Lamotrigine] 250 mg PO BID 03/31/19 [History] FLUoxetine [PROzac] 10 mg PO BEDTIME 05/12/20 [History] Past Medical History Respiratory History: Reports: Asthma 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 - Physical Exam Exam: See Below Exam Limited By: No Limitations General Appearance: Alert, WD/WN, No Apparent Distress, Other (There is quite a bit of dried blood on the patient's left face. This does appear to be coming f rom the left lip laceration.) Eye Exam: Bilateral Eye: EOMI, Normal Inspection, PERRL Ears: Normal External Exam, Normal Canal, Hearing Grossly Normal, Normal TMs Nose: Normal Inspection, Normal Mucosa, No Blood Throat/Mouth: Normal Inspection, Normal Gums, Normal Oropharynx, Normal Voice, No Airway Compromise, Other (1cm linear left lip laceration, does look as if she may have chipped a left front incisor). No: Evidence of Tongue Biting Head Exam: Atraumatic, Normocephalic Neck: Normal Inspection, Supple, Non-Tender, Full Range of Motion Respiratory/Chest: No Respiratory Distress, Lungs Clear, Normal Breath Sounds, No Accessory Muscle Use, Chest Non-Tender Cardiovascular: Normal Peripheral Pulses, Regular Rate, Rhythm, No Murmur Neuro Exam (Abbreviated): Alert, Oriented, Normal Cognition (pt is mildy fatigued, otherwise acting appropriately), No Motor/Sensory Deficits Extremities: Normal Inspection, Normal Capillary Refill Psychiatric: Normal Affect, Normal Mood Skin Exam: Warm, Dry, Intact, Normal Color, No Rash ED PROCEDURES - Laceration/Wound Repair Left Upper Mouth Lac/wound length in cm: 1 Appearance: Irregular (z-shaped), Clean Distal NVT: Neuro & Vascular Intact, No Tendon Injury Anesthetic Type: Local Local Anesthesia - Lidocaine (Xylocaine): 1% Plain Local Anesthetic Volume: 2cc Skin Prep: Chlorhexidine (Hibiciens) Exploration/Debridement/Repair: Wound Explored, In a Bloodless Field, Explored to Base, No Foreign Material Found Closed with: Sutures Suture Size: 5-0 # of Sutures: 2 Suture Type: Prolene, Interrupted, Simple Sterile Dressing Applied: Nurse Tetanus Status Addressed: Yes Complications: No Course - Vital Signs Last Recorded V/S: Last Vital Signs Temp 98.4 F 06/25/20 13:15 Pulse 84 06/25/20 14:09 Resp 18 06/25/20 14:09 BP 109/80 06/25/20 14:09 Pulse Ox 98 06/25/20 14:09 - Orders/Labs/Meds Meds: Medications Discontinued Medications Generic Name Dose Route Start Last Admin Trade Name James PRN Reason Stop Dose Admin Lidocaine HCl 10 ml 06/25/20 13:43 06/25/20 14:07 Xylocaine 1% INJECT 06/25/20 13:44 10 ml ONETIME ONE Administration Lorazepam 1 mg 06/25/20 13:43 06/25/20 14:07 Ativan IVPUSH 06/25/20 13:44 1 mg ONETIME ONE Administration - Re-Assessments/Exams Free Text/Narrative Re-Assessment/Exam: 06/25/20 13:48 Patient presents to the ED for the evaluation of a seizure. She was not given any medications in the ambulance for this. She will get 1 mg Ativan to guard against possible further seizure activity. Her lip laceration will be fixed under local anesthesia. She is not complaining of pain anywhere else, other than the tooth that appears to be chipped. Departure - Departure Time of Disposition: 15:27 Disposition: Home, Self-Care 01 Condition: Good Clinical Impression: Seizure Lip laceration Qualifiers: Encounter type: initial encounter Qualified Code(s): S01.511A - Laceration without foreign body of lip, initial encounter - Discharge Information *PRESCRIPTION DRUG MONITORING PROGRAM REVIEWED*: No *COPY OF PRESCRIPTION DRUG MONITORING REPORT IN PATIENT DILIP: No Instructions: Mouth Laceration, [id number] Referrals: PCP,None [Primary Care Provider] - Forms: ED Department Discharge Additional Instructions: You have been evaluated in the ED for your laceration. Sutures will need to stay in for 5-7 days. You may return to the ED or any clinic for removal. Please keep this area clean and dry, you may cleanse with regular soap and water. No vigorous scrubbing. Please try to avoid submerging the affected area in water for prolonged periods of time until the sutures are removed. Watch out for signs of infection like increased redness, swelling, pain at the laceration site, or if you should develop any fevers or chills. Highly recommend you stick to a soft diet over the next few days, or clear liquid as tolerated to allow the lip laceration to heal. Please try to avoid salty foods, as this might be quite irritating to the laceration. Please go to your pharmacy and obtain your seizure medications and take them as previously instructed. Please return to ED if your symptoms change or worsen. Sepsis Event Note (ED) - Evaluation Sepsis Screening Result: No Definite Risk - Focused Exam Vital Signs: Vital Signs Temp Pulse Resp BP Pulse Ox 06/25/20 14:09 84 18 109/80 98 06/25/20 13:15 98.4 F 91 16 116/80 97
[2020-06-25 14:10] VITALS: BP 109/80; PULSE 84
== END 2020-06-25 15:44 | disposition home or self-care (01) ==
LOC: JD.ED 13:08
DX: G40.909 Epilepsy, unspecified, not intractable, without status epilepticus (principal); S01.511A Laceration without foreign body of lip, initial encounter; J45.909 Unspecified asthma, uncomplicated; F41.9 Anxiety disorder, unspecified; F31.9 Bipolar disorder, unspecified; Z79.899 Other long term (current) drug therapy; Z91.018 Allergy to other foods; Z88.0 Allergy status to penicillin; Z88.5 Allergy status to narcotic agent
CPT/HCPCS: 12011; 96374; 99284; J2001; J2060

== ENCOUNTER 2020-09-09 15:46 | Emergency (ER) | payer MEDICAID ==
[2020-09-09 16:08] VITALS: BP 112/78; PULSE 71
== END 2020-09-09 17:20 ==
LOC: JD.ED 15:46
DX: Z53.21 Procedure and treatment not carried out due to patient leaving prior to being seen by health care provider (principal)

== ENCOUNTER 2020-09-13 00:05 | Emergency (ER) | payer MEDICAID ==
[2020-09-13 00:17] VITALS: BP 127/87; PULSE 71
--- NOTE | 2020-09-13 00:57 | EDM.PDOC ---
ED HPI GENERAL MEDICAL PROBLEM - General Chief Complaint: Respiratory Problem Stated Complaint: HAS ASTHMA USED INHALER & CAN'T STOP SHAKING Time Seen by Provider: 09/13/20 00:17 Source of Information: Reports: Patient History Limitations: Reports: No Limitations - History of Present Illness INITIAL COMMENTS - FREE TEXT/NARRATIVE: Ms. Brumfield is a pleasant 29-year-old woman with a past medical history significant for suspected asthma, who now presents to the ED feeling shaky after she took an albuterol neb around 22:00 to 23:00 [place]. She states that she began feeling short of breath with wheezing at that time. She was not coughing. No recent fever. She states that the albuterol treatment successfully resolved her asthma symptoms, but left her feeling jittery. She called [facility], and the nurse told her to come to the ED to get evaluated. Here in the ED, the patient is found to be hemodynamically stable, afebrile, saturating 97% on room air. Other than [place]rolina's asthma exacerbation and subsequent jitteriness, the patient denies having a recent fever, chills, sore throat, ear pain, nasal or sinus congestion, cough, dyspnea, chest pain, palpitations, nausea, vomiting, constipation, diarrhea, abdominal pain, urinary symptoms, recent weight gain or weight loss, recent bloody bowel movements or black bowel movements, recent joint aches, headaches, or rashes. The patient's PCP is Roseann Rivera NP. Her Neurologist is Dr. Missael Arroyo, at [facility]. She did not receive an influenza vaccine this season, and declined an offer to receive one here [place]. - Related Data Allergies Allergy/AdvReac Type Severity Reaction Status Date / Time coconut Allergy Severe Difficulty Verified 09/13/20 00:18 Swallowing Penicillins Allergy Severe Hives Verified 09/13/20 00:18 tramadol AdvReac Severe Vomiting Verified 09/13/20 00:18 kiwi Allergy Severe Difficulty Uncoded 09/13/20 00:18 Swallowing Home Meds: Home Meds Budesonide/Formoterol [Symbicort 160-4.5 MCG] 1 inh INH DAILY PRN 03/31/19 [History] lamoTRIgine [Lamotrigine] 250 mg PO BID 03/31/19 [History] predniSONE [Prednisone] 5 mg PO DAILY 09/09/20 [History] Past Medical History Respiratory History: Reports: Asthma (suspected, not tested) Neurological History: Reports: Seizure Psychiatric History: Reports: Bipolar, Depression, PTSD Social & Family History - Tobacco Use Tobacco Use Within Last Twelve Months: Vaping (Nicotine) Years of Tobacco use: 9 Packs/Tins Daily: 2 Month/Year Tobacco Last Used: Quit 2018 - Caffeine Use Caffeine Use: Reports: None - Alcohol Use Alcohol Use History: No - Recreational Drug Use Recreational Drug Use: Yes Drug Use in Last 12 Months: No Recreational Drug Type: Reports: Cocaine (last smokes around 2013), Marijuana/Hashish (last smoked 2017) - Living Situation & Occupation Living situation: Reports: Single, with Significant Other (Fianc) Occupation: Unemployed ED ROS GENERAL - Review of Systems Review Of Systems: Comprehensive ROS is negative, except as noted in HPI. ED EXAM, GENERAL - Physical Exam Exam: See Below Exam Limited By: No Limitations General Appearance: Alert, WD/WN, No Apparent Distress Eye Exam: Bilateral Eye: EOMI, Normal Inspection Ears: Normal External Exam, Hearing Grossly Normal Nose: Normal Inspection Throat/Mouth: Normal Inspection, Normal Lips, Normal Voice, No Airway Compromise Head: Atraumatic, Normocephalic Neck: Normal Inspection, Full Range of Motion Respiratory/Chest: No Respiratory Distress, Lungs Clear, Normal Breath Sounds, No Accessory Muscle Use. No: Decreased Breath Sounds, Crackles, Rhonchi, Wheezing, Stridor, Prolonged Expiration Cardiovascular: Normal Peripheral Pulses, Regular Rate, Rhythm, No Edema, No Gallop, No JVD, No Murmur, No Rub Peripheral Pulses: 3+: Radial (L), Radial (R) GI/Abdominal: Normal Bowel Sounds, Soft, Non-Tender, No Organomegaly, No Distention, No Abnormal Bruit, No Mass Back Exam: Normal Inspection, Full Range of Motion, NT Extremities: Normal Inspection, Normal Range of Motion, No Pedal Edema, Normal Capillary Refill Neurological: Alert, Oriented, Normal Cognition, No Motor/Sensory Deficits Psychiatric: Normal Affect Skin Exam: Warm, Dry, Intact, Normal Color, No Rash Course - Vital Signs Last Recorded V/S: Last Vital Signs Temp 36.9 C 09/13/20 00:15 Pulse 71 09/13/20 00:15 Resp 20 09/13/20 00:15 BP 127/87 09/13/20 00:15 Pulse Ox 97 09/13/20 00:15 - Re-Assessments/Exams Free Text/Narrative Re-Assessment/Exam: 09/13/20 00:51 As above, the patient states that she was experiencing an asthma exacerbation earlier tonight, with difficulty breathing and wheezing, resolved after a single albuterol nebulizer treatment, however, she now presents the ED because she is feeling jittery. At triage, her vitals are normal, with no tachycardia. Her physical exam is completely unremarkable, including clear lungs to auscultation bilaterally. I explained to the patient that one of the side effects of albut ashley is the feeling of jitteriness, but unless it were to cause significant problems, such as an SVT, no treatment is necessary for this expected side effect. Her jitteriness should wear off in time. The patient may safely be discharged home. Departure - Departure Time of Disposition: 00:52 Disposition: Home, Self-Care 01 Condition: Good Clinical Impression: Jittery feeling - Discharge Information *PRESCRIPTION DRUG MONITORING PROGRAM REVIEWED*: Not Applicable *COPY OF PRESCRIPTION DRUG MONITORING REPORT IN PATIENT DILIP: Not Applicable Referrals: Roseann Rivera NP [Primary Care Provider] - Cathy Arroyo MD [Ordering Only Provider] - Forms: ED Department Discharge Additional Instructions: You were seen in the emergency room for feeling shaky after taking an albuterol by nebulizer to treat an asthma exacerbation earlier tonight. On examination, no abnormalities were found. Your heart rate is within normal limits. Your lungs are clear, with no wheezing, indicating that your previous asthma exacerbation was successfully treated. As explained, feeling jittery or shaky following albuterol is a normal side effect of the medicine, and does not require treatment. If any other problems, please do not hesitate to return to the ER. Sepsis Event Note (ED) - Evaluation Sepsis Screening Result: No Definite Risk - Focused Exam Vital Signs: Vital Signs Temp Pulse Resp BP Pulse Ox 09/13/20 00:15 36.9 C 71 20 127/87 97
== END 2020-09-13 00:51 | disposition home or self-care (01) ==
LOC: JD.ED 00:05
DX: R25.1 Tremor, unspecified (principal); R56.9 Unspecified convulsions; F31.9 Bipolar disorder, unspecified; Z87.891 Personal history of nicotine dependence; Z88.0 Allergy status to penicillin; Z88.5 Allergy status to narcotic agent; Z91.018 Allergy to other foods; Z79.899 Other long term (current) drug therapy
CPT/HCPCS: 99282; 99284

== ENCOUNTER 2020-09-23 00:45 | Emergency (ER) | payer MEDICAID ==
[2020-09-23 00:57] VITALS: BP 106/58; PULSE 98
--- NOTE | 2020-09-23 01:37 | EDM.PDOC ---
ED HPI GENERAL MEDICAL PROBLEM - General Chief Complaint: Neurological Problem Stated Complaint: SEIZURE Time Seen by Provider: 09/23/20 01:02 Source of Information: Reports: Patient History Limitations: Reports: No Limitations - History of Present Illness INITIAL COMMENTS - FREE TEXT/NARRATIVE: This is a 29-year-old female. She has a history of [place] seizures. She apparently had a seizure tonight. According to her boyfriend it was a "bad one" but I saw her back in December of this year with a bad one as well. She says she takes faithfully her medications for seizures and she has not been drinking or doing drugs that might lower the threshold. She apparently sees her doctor on a periodic basis and has been doing fine until this evening. She is slightly postictal and wanting to sleep and she does complain of a headache which is typical after having her seizures. She denies any recent illnesses colds coughs fever or chills. 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: Neurological History: Reports: Seizure Psychiatric History: Reports: Bipolar, Depression, PTSD Social & Family History - Tobacco Use Tobacco Use Status *Q: Current Every Day Tobacco User Years of Tobacco use: 9 Packs/Tins Daily: 0 - Caffeine Use Caffeine Use: Reports: None - Living Situation & Occupation Living situation: Reports: Single, with Significant Other (Fianc) Occupation: Unemployed ED ROS GENERAL - Review of Systems Review Of Systems: See Below Constitutional: Denies: Fever, Chills HEENT: Reports: No Symptoms Respiratory: Reports: No Symptoms Cardiovascular: Reports: No Symptoms Endocrine: Reports: No Symptoms GI/Abdominal: Reports: No Symptoms : Reports: No Symptoms Musculoskeletal: Reports: No Symptoms Skin: Reports: No Symptoms Neurological: Reports: Headache, Seizure Psychiatric: Reports: No Symptoms - Physical Exam Exam: See Below Exam Limited By: No Limitations General Appearance: Alert, WD/WN, No Apparent Distress Eye Exam: Bilateral Eye: Normal Inspection Ears: Normal External Exam, Normal Canal, Normal TMs Nose: Normal Inspection Throat/Mouth: Normal Lips, Normal Voice, No Airway Compromise Head Exam: Normocephalic Neck: Supple Respiratory/Chest: No Respiratory Distress, Lungs Clear, Normal Breath Sounds Cardiovascular: Regular Rate, Rhythm, No Murmur GI/Abdominal: Soft Neuro Exam (Abbreviated): Alert, Oriented, Other (Patient is somewhat groggy but she will awaken and she will answer questions. She says she wants to sleep and she has a headache.) Back Exam: Full Range of Motion Extremities: Normal Inspection, Normal Range of Motion Psychiatric: Flat Affect Skin Exam: Warm, Dry Course - Vital Signs Last Recorded V/S: Last Vital Signs Temp 98.2 F 09/23/20 00:55 Pulse 98 09/23/20 00:55 Resp 16 09/23/20 00:55 BP 106/58 L 09/23/20 00:55 Pulse Ox 99 09/23/20 00:55 Departure - Departure Time of Disposition: 01:36 Disposition: Home, Self-Care 01 Condition: Fair Clinical Impression: Post-seizure headache, Seizure disorder, Post-ictal state - Discharge Information *PRESCRIPTION DRUG MONITORING PROGRAM REVIEWED*: Not Applicable *COPY OF PRESCRIPTION DRUG MONITORING REPORT IN PATIENT DILIP: Not Applicable Instructions: Epilepsy, [id number] Referrals: PCP,None [Primary Care Provider] - Additional Instructions: Go home and sleep as long as you possibly can to help with the post seizure symptoms and headache, in the morning you can take some Tylenol or ibuprofen as needed if the headache lingers, follow-up with your doctor this week for recheck and possible adjustment of your seizure medications, return to the ER if needed Sepsis Event Note (ED) - Evaluation Sepsis Screening Result: No Definite Risk - Focused Exam Vital Signs: Vital Signs Temp Pulse Resp BP Pulse Ox 09/23/20 00:55 98.2 F 98 16 106/58 L 99
== END 2020-09-23 01:42 | disposition home or self-care (01) ==
LOC: JD.ED 00:45
DX: G40.909 Epilepsy, unspecified, not intractable, without status epilepticus (principal); R51.9 Headache, unspecified; J45.909 Unspecified asthma, uncomplicated; F17.210 Nicotine dependence, cigarettes, uncomplicated; Z79.899 Other long term (current) drug therapy; Z91.018 Allergy to other foods; Z88.0 Allergy status to penicillin; Z88.5 Allergy status to narcotic agent
CPT/HCPCS: 99283